=== PATIENT | female | born 2000 | race Caucasian/White ===

== ENCOUNTER 2020-05-13 21:31 | Emergency (ER) | payer OTHER ==
[~2020-05-13] VITALS: Ht 147.3 cm; Wt 54.5 kg
[2020-05-13] MEDS ORDERED: IBUP-2070 PO (21:40)
[2020-05-13] MEDS ORDERED: HYDROmorphone 2 MG/ML SYRINGE IM ONE (23:45)
[2020-05-13] MEDS ORDERED: DOXYCYCLINE HYCLATE 100 MG TABLET PO ONE (23:45)
[2020-05-13] MEDS ORDERED: CEPHALEXIN MONOHYDRATE 500 MG CAPSULE PO ONE (23:45)
[2020-05-13] MEDS ORDERED: LIDOCAINE 1% 10 ML VIAL INJ ONE (23:45)
[2020-05-13] MEDS ORDERED: ONDANSETRON HCL 4 MG/2 ML VIAL IM ONE (23:45)
[2020-05-14 01:25] VITALS: BP 117/84
== END 2020-05-14 01:54 | disposition home or self-care (01) ==
LOC: EMS 21:31
DX: L02.415 Cutaneous abscess of right lower limb (principal); Z79.899 Other long term (current) drug therapy
CPT/HCPCS: 10061; 96372; 99284; J1170; J2405; J3490

== ENCOUNTER 2020-05-16 19:15 | Emergency (ER) | payer OTHER ==
[~2020-05-16] VITALS: Ht 147.3 cm; Wt 54.5 kg
[~2020-05-16 19:15] MED LIST: IBUP-2070 PO
[2020-05-16 21:00] VITALS: BP 118/77
== END 2020-05-16 21:02 | disposition home or self-care (01) ==
LOC: EMS 19:15
DX: Z48.00 Encounter for change or removal of nonsurgical wound dressing (principal)
CPT/HCPCS: Z7502